=== PATIENT | female | born 1965 | race American Indian/Alaskan Native ===

== ENCOUNTER 2016-10-01 19:37 | Emergency (ER) | payer SELFPAY ==
[2016-10-01] MEDS ORDERED: MORPHINE IV ONE ×2 (20:54→22:49)
[2016-10-01] MEDS ORDERED: ZOFRAN IV ONE (20:54)
[2016-10-01] MEDS ORDERED: NACL 0.9% 500 ML 500 ML IV ONE (20:54)
[2016-10-01] MEDS ORDERED: DIPRIVAN 10 MG/ML IV ONE (21:22)
[2016-10-01 22:10] VITALS: BP 161/80
--- NOTE | 2016-10-01 22:13 | Emergency Department Report ---
HPI - General Chief Complaint: Extremity Injury, Lower Time Seen by Provider: 10/01/16 20:53 - HPI HPI: The patient's for 51-year-old female presents for evaluation of pain to the right ankle. The patient states that one hour prior to arrival she tripped and injured her right ankle. She states that since her injury she has this pain is constant pain to the right ankle, 10/10 in severity, throbbing in quality, exacerbated with attempting movement of the right ankle. She denies trauma or injury to the head, headache, chest pain, dyspnea, syncope, paresthesias, or motor deficit distal to her injury. ED Past Medical Hx - Past Medical History Previous Medical History?: No - Surgical History Past Surgical History?: No - Social History Smoking Status: Never Smoker Substance Use Type: None - Medications Home Medications: Home Medications Medication Instructions Recorded Confirmed Last Taken Type HYDROcodone/APAP 7.5-325 [[place] 1 each PO Q6HR PRN #20 tablet 10/01/16 Unknown Rx 7.5-325 mg TAB] Ibuprofen [Motrin] 800 mg PO Q8HR PRN #15 tablet 10/01/16 Unknown Rx Ondansetron [Zofran TAB] 4 mg PO Q8HR PRN #15 tablet 10/01/16 Unknown Rx ED Review of Systems ROS: Stated complaint: RIGHT ANKLE PAIN Other details as noted in HPI Constitutional: denies: fever ENT: denies: throat or neck pain Respiratory: denies: cough, shortness of breath Cardiovascular: denies: chest pain Endocrine: denies unexplained weight loss or gain Gastrointestinal: denies: abdominal pain, nausea Genitourinary: denies: dysuria Musculoskeletal: reports right ankle pain Skin: denies: rash Neurological: denies: headache Hematological/Lymphatic: denies: easy bleeding or easy bruising Psych: denies sadness or hopelessness Physical Exam - Physical Exam Vital Signs: Vital Signs 10/01/16 10/01/16 10/01/16 21:20 21:30 21:48 Pulse Rate 105 H Pulse Rate [ Intra-Procedure ] Pulse Rate [Pre -Procedure] Respiratory 20 20 20 Rate Respiratory Rate [Intra- Procedure] Respiratory Rate [Pre- Procedure] Blood Pressure [Intra- Procedure] Blood Pressure 172/86 [Left] Blood Pressure [Pre-Procedure] O2 Sat by Pulse 100 100 Oximetry O2 Sat by Pulse Oximetry [ Intra-Procedure ] O2 Sat by Pulse Oximetry [Pre- Procedure] 10/01/16 10/01/16 10/01/16 21:50 21:52 21:55 Pulse Rate Pulse Rate [ 103 H Intra-Procedure ] Pulse Rate [Pre 111 H -Procedure] Respiratory 18 Rate Respiratory 16 Rate [Intra- Procedure] Respiratory 20 Rate [Pre- Procedure] Blood Pressure 143/101 [Intra- Procedure] Blood Pressure [Left] Blood Pressure 177/85 [Pre-Procedure] O2 Sat by Pulse Oximetry O2 Sat by Pulse 97 Oximetry [ Intra-Procedure ] O2 Sat by Pulse 100 Oximetry [Pre- Procedure] 10/01/16 22:03 Pulse Rate Pulse Rate [ Intra-Procedure ] Pulse Rate [Pre -Procedure] Respiratory 20 Rate Respiratory Rate [Intra- Procedure] Respiratory Rate [Pre- Procedure] Blood Pressure [Intra- Procedure] Blood Pressure [Left] Blood Pressure [Pre-Procedure] O2 Sat by Pulse Oximetry O2 Sat by Pulse Oximetry [ Intra-Procedure ] O2 Sat by Pulse Oximetry [Pre- Procedure] Physical Exam: General: well-nourished, well-developed, no acute distress Head: Normocephalic, atraumatic Eyes: normal sclera ENT: Mucous membranes are pink and moist Neck: trachea midline, neck supple, No neck stiffness, no cervical adenopathy Respiratory: Breath sounds equal bilaterally, no wheezing, rales, or rhonchi Cardio: S1 and S2 present, no murmurs, rubs, gallops, capillary refill is brisk Abdomen: Normoactive bowel sounds, soft abdomen, no tenderness Musc: Obvious deformity present to the right ankle, right ankle is swollen, with tenderness to palpation present to the medial and lateral malleolus, distal sensation intact, able to move toes, no open wound or tenting of the skin to the right ankle or foot Skin: No rash Neuro: no facial drooping, normal speech Psych: Normal affect ED Course Vital Signs 10/01/16 10/01/16 10/01/16 21:20 21:30 21:48 Pulse Rate 105 H Pulse Rate [ Intra-Procedure ] Pulse Rate [Pre -Procedure] Respiratory 20 20 20 Rate Respiratory Rate [Intra- Procedure] Respiratory Rate [Pre- Procedure] Blood Pressure [Intra- Procedure] Blood Pressure 172/86 [Left] Blood Pressure [Pre-Procedure] O2 Sat by Pulse 100 100 Oximetry O2 Sat by Pulse Oximetry [ Intra-Procedure ] O2 Sat by Pulse Oximetry [Pre- Procedure] 10/01/16 10/01/16 10/01/16 21:50 21:52 21:55 Pulse Rate Pulse Rate [ 103 H Intra-Procedure ] Pulse Rate [Pre 111 H -Procedure] Respiratory 18 Rate Respiratory 16 Rate [Intra- Procedure] Respiratory 20 Rate [Pre- Procedure] Blood Pressure 143/101 [Intra- Procedure] Blood Pressure [Left] Blood Pressure 177/85 [Pre-Procedure] O2 Sat by Pulse Oximetry O2 Sat by Pulse 97 Oximetry [ Intra-Procedure ] O2 Sat by Pulse 100 Oximetry [Pre- Procedure] 10/01/16 22:03 Pulse Rate Pulse Rate [ Intra-Procedure ] Pulse Rate [Pre -Procedure] Respiratory 20 Rate Respiratory Rate [Intra- Procedure] Respiratory Rate [Pre- Procedure] Blood Pressure [Intra- Procedure] Blood Pressure [Left] Blood Pressure [Pre-Procedure] O2 Sat by Pulse Oximetry O2 Sat by Pulse Oximetry [ Intra-Procedure ] O2 Sat by Pulse Oximetry [Pre- Procedure] - Moderate Sedation Indications: fracture/dislocation redu ASA Class: I Mallampati Airway Score: 1 Time of Last PO Intake: 12:00 Preparation: court monitor applied, capnometry used, supplemental O2 applied, suction/airway equipment at bedside, IV secured IV Propofol Dose (mgs): 150 Complications: none Patient Tolerated Procedure: well, no complications Additional Comments: time in/procedure start time: 2151 time out/Procedure conclusion time: 2204 - Orthopedic Fracture Reduction Fracture #1 Consent Obtained: verbal consent, written consent Time Out Performed: Yes (time in/procedure start time: 2151 time out: 2204) Side: right Fracture Reduction Location: tibia, fibula Analgesia: moderate sedation Technique: traction/counter-traction Post Reduction X-rays Demonstrate: anatomical reduction Post-Reduction Neuro Exam: intact Post-Reduction Vascular Exam: intact Splint Applied: Yes Patient Tolerated Procedure: well, no complications ED Medical Decision Making - Medical Decision Making The patient was seen and examined by myself. The patient is placed on a court monitor and continuous pulse ox. On initial evaluation, the patient was found to be in no distress. Evaluation orders were placed. The patient is given IV morphine for pain. X-ray of the right ankle reveals an acute trimalleolar fracture and lateral displacement of the right ankle. The patient is consented for conscious sedation and reduction of the dislocated right ankle fracture. A conscious sedation and reduction of her dislocated ankle is performed. The patient tolerated the procedure well without difficulty. A explains placed in the right ankle. A repeat x-rays performed and reveals appropriate reduction and anatomic alignment of the right ankle. A postreduction reevaluation is performed and the patient is found to remain with intact sensation, distal motor function, and distal pulses/cap refill. She also reported that her pain was markedly improved. The patient is stable for discharge with outpatient follow-up. The patient is given follow-up and return instructions. The patient expressed understanding and agreed with the plan. The patient is discharged in stable condition. Critical care attestation.: If time is entered above; I have spent that time in minutes in the direct care of this critically ill patient, excluding procedure time. ED Disposition Clinical Impression: Closed displaced trimalleolar fracture of right ankle Qualifiers: Encounter type: initial encounter Qualified Code(s): S82.851A - Displaced trimalleolar fracture of right lower leg, initial encounter for closed fracture Disposition: DISCHARGED TO HOME OR SELFCARE Is pt being admited?: No Does the pt Need Aspirin: No Condition: Stable Instructions: Ankle Fracture (ED), Splint Care (ED), Ankle Dislocation (ED) Prescriptions: HYDROcodone/APAP 7.5-325 [[place] 7.5-325 mg TAB] 1 each PO Q6HR PRN #20 tablet PRN Reason: Pain Ibuprofen [Motrin] 800 mg PO Q8HR PRN #15 tablet PRN Reason: Pain Ondansetron [Zofran TAB] 4 mg PO Q8HR PRN #15 tablet PRN Reason: Nausea Referrals: DULCE VALLECILLO MD [Staff Physician] - 3-5 Days LUIS WORTHINGTON MD [Staff Physician] - 3-5 Days Time of Disposition: 22:13
--- NOTE | 2016-10-02 08:22 | XRay Report ---
RIGHT ANKLE VIEWS: 10/01/16 19:37:00 CLINICAL: Right ankle deformity and pain. FINDINGS: Trimalleolar fracture and dislocation at the tibiotalar joint. The talus is shifted lateral and posterior relative to the tibia. The major distal fibular fragment is displaced laterally by one shaft width. There is some periosteal new bone formation associated with the proximal fibular fragment but no other callus is identified.Moderate soft tissue swelling. No soft tissue air or foreign body. IMPRESSION: Traumatic closed fracture dislocation with displaced fragments. The distal fibular fracture may be older than the other fractures.
--- NOTE | 2016-10-02 08:24 | XRay Report ---
RIGHT ANKLE 2 VIEWS: 10/01/16 19:37:00 CLINICAL: Post reduction. FINDINGS: Since the last exam on the same day at 20:57, the trimalleolar fracture dislocation has been satisfactorily reduced. A fiberglass cast has been applied. IMPRESSION: Satisfactory reduction of trimalleolar fracture dislocation.
== END 2016-10-01 23:15 | disposition home or self-care (01) ==
LOC: ED 19:37
DX: S82.851A Displaced trimalleolar fracture of right lower leg, initial encounter for closed fracture (principal); W01.0XXA Fall on same level from slipping, tripping and stumbling without subsequent striking against object, initial encounter; Y93.9 Activity, unspecified; Y92.9 Unspecified place or not applicable; Y99.9 Unspecified external cause status
CPT/HCPCS: 27818; 73600; 96365; 96375; 96376; 99284; J2270; J2405; J2704; J7040